=== PATIENT | female | born 1955 ===

== ENCOUNTER 2020-11-19 19:11 | Inpatient (IN) | payer MEDICARE ==
[~2020-11-19] VITALS: Ht 165.1 cm; Wt 109.1 kg
[2020-11-19] MEDS ORDERED: NEURONTIN600 MG/TAB PO (22:47)
[2020-11-19] MEDS ORDERED: VESICARE 5MG5 MG PO (22:48)
[2020-11-19] MEDS ORDERED: ASPIRIN 81M81 MG/TA2 PO (22:48)
[2020-11-19] MEDS ORDERED: SEROQUEL 2525 MG/TAB PO (22:48)
[2020-11-19] MEDS ORDERED: NATURE'S BLEND160 MG PO (22:49)
[2020-11-19] MEDS ORDERED: CARTIA XT120 MG PO (22:49)
[2020-11-19] MEDS ORDERED: PROZAC40 MG PO (22:49)
[2020-11-19] MEDS ORDERED: HCTZ12.5TAB PO (22:50)
[2020-11-19] MEDS ORDERED: CALTRATE-600 W600 MG PO (22:50)
[2020-11-19 23:09] LABS: ARTERIAL BLD GAS O2 SATURATION 96.1 % (92-100); ARTERIAL BLD GAS TCO2 CT 25.6; ARTERIAL BLOOD GAS BASE EXCESS 1.5 (-2-2); ARTERIAL BLOOD GAS HCO3 24.5 meq/L (22-26); ARTERIAL BLOOD GAS PCO2 33.4 mmHg (35-45); ARTERIAL BLOOD GAS PO2 85.4 mmHg (80-100); ARTERIAL BLOOD GAS pH 7.48 (7.35-7.45)
[2020-11-20 00:34] VITALS: BP 127/71; PULSE 56; TEMP 97.1
[2020-11-20 00:37] LABS: BASO % 0.2 % (0.0-2.0); GRAN # 4.1 (1.4-6.5); GRAN % 78.3 % (42.2-75.2); HEMOGLOBIN 11.7 g/dl (12.5-16.0); LYMPH # 0.6 (1.2-3.4); LYMPH % 11.8 % (20.0-51.0); MEAN CELL VOLUME 83 fl (80.0-100.0); MEAN CORPUSCULAR HEMOGLOBIN 27 pg (27.0-31.0); MEAN CORPUSCULAR HGB CONC 33 g/dl (33.0-37.0); MEAN PLATELET VOLUME 9.8 fl (7.4-10.4); MONO # 0.5 (0.1-0.6); MONO % 9.1 % (1.7-9.3); PLATELET COUNT 225 K/mm3 (130-400); RED BLOOD COUNT 4.35 M/mm3 (4.10-5.30); REDCELL DISTRIBUTION WIDTH-CV 14.1 % (11.5-14.5)
[2020-11-20 00:49] LABS: PROTHROMBIN TIME 11.5 SECONDS (9.7-12.8)
[2020-11-20 00:58] LABS: ALBUMIN 2.8 gm/dL (3.4-4.8); BILIRUBIN,TOTAL 0.3 mg/dL (0.2-1.2); C-REACTIVE PROTEIN 2.2 mg/dL (0.00-0.50); CALCIUM 8.6 mg/dL (8.4-10.2); CREATININE, serum 0.9 mg/dL (0.57-1.11); POTASSIUM 3.4 mmol/L (3.5-4.5)
[2020-11-20 01:04] LABS: TROPONIN-I 0.01 ng/mL (0.00-0.033)
[2020-11-20 03:34] VITALS: BP 134/70; PULSE 64; TEMP 97.6
[2020-11-20 08:04] VITALS: BP 147/73; PULSE 62; TEMP 97
[2020-11-20 08:34] LABS: GRAN # 3.8 (1.4-6.5); HEMOGLOBIN 11.9 g/dl (12.5-16.0); LYMPH # 0.6 (1.2-3.4); LYMPH % 11.9 % (20.0-51.0); MEAN CELL VOLUME 81 fl (80.0-100.0); MEAN CORPUSCULAR HEMOGLOBIN 27 pg (27.0-31.0); MEAN CORPUSCULAR HGB CONC 33 g/dl (33.0-37.0); MONO # 0.4 (0.1-0.6); MONO % 8.5 % (1.7-9.3); PLATELET COUNT 231 K/mm3 (130-400); RED BLOOD COUNT 4.41 M/mm3 (4.10-5.30)
[2020-11-20 08:41] LABS: HEMATOCRIT 35.9 % (37.0-47.0)
[2020-11-20 08:48] LABS: CALCIUM 8.6 mg/dL (8.4-10.2); CREATININE, serum 0.81 mg/dL (0.57-1.11); POTASSIUM 3.7 mmol/L (3.5-4.5)
[2020-11-20 16:35] VITALS: BP 133/72; PULSE 66; TEMP 97.7
[2020-11-20 19:42] VITALS: BP 145/77; PULSE 72; TEMP 98.1
[2020-11-20 23:44] VITALS: BP 144/73; PULSE 58; TEMP 98.3
[2020-11-21 04:14] VITALS: BP 165/89; PULSE 59; TEMP 97.6
[2020-11-21 08:20] VITALS: BP 154/81; PULSE 72; TEMP 97.8
[2020-11-21 12:12] VITALS: BP 145/77; PULSE 65; TEMP 97.7
[2020-11-21 15:58] VITALS: BP 151/73; PULSE 65; TEMP 97.6
[2020-11-21 20:00] VITALS: BP 137/81; PULSE 74; TEMP 98.3
[2020-11-22] VITALS (7 sets, daily range): BP systolic 106–150; BP diastolic 67–79; PULSE 58–80; TEMP 97.6–98.6
[2020-11-23 03:58] VITALS: BP 149/71; PULSE 70; TEMP 87
[2020-11-23 04:23] LABS: HEMOGLOBIN 11.6 g/dl (12.5-16.0); MEAN CELL VOLUME 82 fl (80.0-100.0); MEAN CORPUSCULAR HEMOGLOBIN 27 pg (27.0-31.0); MEAN CORPUSCULAR HGB CONC 32 g/dl (33.0-37.0); MEAN PLATELET VOLUME 9.7 fl (7.4-10.4); PLATELET COUNT 290 K/mm3 (130-400); RED BLOOD COUNT 4.38 M/mm3 (4.10-5.30)
[2020-11-23 04:27] LABS: HEMATOCRIT 35.8 % (37.0-47.0)
[2020-11-23 04:45] LABS: C-REACTIVE PROTEIN 10.4 mg/dL (0.00-0.50); CALCIUM 9.2 mg/dL (8.4-10.2); CREATININE, serum 0.74 mg/dL (0.57-1.11); MAGNESIUM 1.6 mg/dL (1.6-2.6); POTASSIUM 3.9 mmol/L (3.5-4.5)
[2020-11-23 05:11] LABS: BAND 2 % (0-10); EOSINOPHIL 8 % (0-4); LYMPHOCYTE 17 % (20.0-51.0); NEUTROPHILS 65 % (42.0-75.2); PLATELET ESTIMATE NORMAL (NORMAL)
[2020-11-23 08:05] VITALS: BP 131/75; PULSE 79; TEMP 99.5
[2020-11-23 11:49] VITALS: BP 87/51; PULSE 74; TEMP 99.6
[2020-11-23 16:20] VITALS: BP 109/68; PULSE 80; TEMP 97.5
[2020-11-23 20:58] VITALS: BP 103/63; PULSE 84; TEMP 97.9
[2020-11-24] VITALS (252 sets, daily range): BP systolic 120–145; BP diastolic 63–79; PULSE 61–102; TEMP 97.6–99.8; O2SAT 42–100
[2020-11-24 10:17] LABS: ARTERIAL BLD GAS O2 SATURATION 98.5 % (92-100); ARTERIAL BLD GAS TCO2 CT 24.4; ARTERIAL BLOOD GAS BASE EXCESS 1.7 (-2-2); ARTERIAL BLOOD GAS HCO3 23.5 meq/L (22-26); ARTERIAL BLOOD GAS PCO2 28.5 mmHg (35-45); ARTERIAL BLOOD GAS pH 7.53 (7.35-7.45)
[2020-11-24 10:18] LABS: ARTERIAL BLOOD GAS PO2 137.1 mmHg (80-100)
[2020-11-24 10:45] LABS: HEMATOCRIT 35.2 % (37.0-47.0); HEMOGLOBIN 11.8 g/dl (12.5-16.0); MEAN CELL VOLUME 81 fl (80.0-100.0); MEAN CORPUSCULAR HEMOGLOBIN 27 pg (27.0-31.0); MEAN CORPUSCULAR HGB CONC 34 g/dl (33.0-37.0); MEAN PLATELET VOLUME 9.7 fl (7.4-10.4); PLATELET COUNT 306 K/mm3 (130-400); RED BLOOD COUNT 4.37 M/mm3 (4.10-5.30); REDCELL DISTRIBUTION WIDTH-CV 14.5 % (11.5-14.5)
[2020-11-24 11:01] LABS: CALCIUM 8.9 mg/dL (8.4-10.2); CREATININE, serum 0.77 mg/dL (0.57-1.11); POTASSIUM 3.7 mmol/L (3.5-4.5)
[2020-11-24 11:04] LABS: BAND 6 % (0-10); LYMPHOCYTE 8 % (20.0-51.0); METAMYELOCYTE 1 % (0-0); NEUTROPHILS 79 % (42.0-75.2); PLATELET ESTIMATE NORMAL (NORMAL)
[2020-11-25] VITALS (387 sets, daily range): BP systolic 112–171; BP diastolic 64–101; PULSE 62–84; TEMP 97.3–98.7; O2SAT 50–100
[2020-11-25 04:32] LABS: ARTERIAL BLD GAS O2 SATURATION 97.4 % (92-100); ARTERIAL BLOOD GAS BASE EXCESS 0.7 (-2-2); ARTERIAL BLOOD GAS PCO2 34.2 mmHg (35-45); ARTERIAL BLOOD GAS PO2 98.7 mmHg (80-100); ARTERIAL BLOOD GAS pH 7.46 (7.35-7.45)
[2020-11-25 06:02] LABS: HEMOGLOBIN 11.9 g/dl (12.5-16.0); MEAN CELL VOLUME 82 fl (80.0-100.0); MEAN CORPUSCULAR HEMOGLOBIN 27 pg (27.0-31.0); MEAN CORPUSCULAR HGB CONC 33 g/dl (33.0-37.0); MEAN PLATELET VOLUME 9.6 fl (7.4-10.4); PLATELET COUNT 316 K/mm3 (130-400); RED BLOOD COUNT 4.44 M/mm3 (4.10-5.30); REDCELL DISTRIBUTION WIDTH-CV 14.3 % (11.5-14.5)
[2020-11-25 06:05] LABS: HEMATOCRIT 36.5 % (37.0-47.0)
[2020-11-25 06:20] LABS: CALCIUM 9.6 mg/dL (8.4-10.2); CREATININE, serum 0.7 mg/dL (0.57-1.11); POTASSIUM 4.5 mmol/L (3.5-4.5)
[2020-11-25 06:27] LABS: BAND 4 % (0-10); EOSINOPHIL 2 % (0-4); LYMPHOCYTE 15 % (20.0-51.0); MYELOCYTE 2 % (0-0); NEUTROPHILS 74 % (42.0-75.2)
[2020-11-25 06:28] LABS: PLATELET ESTIMATE NORMAL (NORMAL)
[2020-11-26] VITALS (461 sets, daily range): BP systolic 107–130; BP diastolic 55–84; PULSE 56–89; TEMP 98–98.9; O2SAT 53–100
[2020-11-26 04:02] LABS: ARTERIAL BLD GAS O2 SATURATION 92.2 % (92-100); ARTERIAL BLOOD GAS BASE EXCESS 2.7 (-2-2); ARTERIAL BLOOD GAS HCO3 25.9 meq/L (22-26); ARTERIAL BLOOD GAS PCO2 35.1 mmHg (35-45); ARTERIAL BLOOD GAS PO2 62.6 mmHg (80-100); ARTERIAL BLOOD GAS pH 7.49 (7.35-7.45)
[2020-11-26 06:20] LABS: MEAN CELL VOLUME 82 fl (80.0-100.0); MEAN CORPUSCULAR HEMOGLOBIN 27 pg (27.0-31.0); MEAN CORPUSCULAR HGB CONC 33 g/dl (33.0-37.0); PLATELET COUNT 368 K/mm3 (130-400); RED BLOOD COUNT 4.45 M/mm3 (4.10-5.30); REDCELL DISTRIBUTION WIDTH-CV 14.4 % (11.5-14.5)
[2020-11-26 06:32] LABS: HEMATOCRIT 36.5 % (37.0-47.0)
[2020-11-26 06:37] LABS: C-REACTIVE PROTEIN 7.3 mg/dL (0.00-0.50); CALCIUM 9.5 mg/dL (8.4-10.2); CREATININE, serum 0.7 mg/dL (0.57-1.11); MAGNESIUM 2.1 mg/dL (1.6-2.6); POTASSIUM 4.3 mmol/L (3.5-4.5)
[2020-11-26 07:00] LABS: EOSINOPHIL 3 % (0-4); LYMPHOCYTE 14 % (20.0-51.0); MYELOCYTE 1 % (0-0); NEUTROPHILS 79 % (42.0-75.2); PLATELET ESTIMATE NORMAL (NORMAL)
[2020-11-27] VITALS (615 sets, daily range): BP systolic 109–156; BP diastolic 70–96; PULSE 54–101; TEMP 98–98.8; O2SAT 72–100
[2020-11-27 03:48] LABS: ARTERIAL BLD GAS O2 SATURATION 91.5 % (92-100); ARTERIAL BLD GAS TCO2 CT 27.6; ARTERIAL BLOOD GAS BASE EXCESS 2.9 (-2-2); ARTERIAL BLOOD GAS HCO3 26.4 meq/L (22-26); ARTERIAL BLOOD GAS PCO2 36.8 mmHg (35-45); ARTERIAL BLOOD GAS PO2 61.6 mmHg (80-100); ARTERIAL BLOOD GAS pH 7.47 (7.35-7.45)
[2020-11-27 05:56] LABS: HEMOGLOBIN 11.9 g/dl (12.5-16.0); MEAN CELL VOLUME 81 fl (80.0-100.0); MEAN CORPUSCULAR HEMOGLOBIN 27 pg (27.0-31.0); MEAN CORPUSCULAR HGB CONC 33 g/dl (33.0-37.0); MEAN PLATELET VOLUME 9.2 fl (7.4-10.4); PLATELET COUNT 363 K/mm3 (130-400); RED BLOOD COUNT 4.46 M/mm3 (4.10-5.30); REDCELL DISTRIBUTION WIDTH-CV 14.6 % (11.5-14.5)
[2020-11-27 05:57] LABS: HEMATOCRIT 36.2 % (37.0-47.0)
[2020-11-27 06:17] LABS: C-REACTIVE PROTEIN 3.2 mg/dL (0.00-0.50); CALCIUM 9.6 mg/dL (8.4-10.2); CREATININE, serum 0.76 mg/dL (0.57-1.11); POTASSIUM 4.2 mmol/L (3.5-4.5)
[2020-11-27 06:30] LABS: BAND 4 % (0-10); EOSINOPHIL 3 % (0-4); LYMPHOCYTE 13 % (20.0-51.0); METAMYELOCYTE 1 % (0-0); NEUTROPHILS 75 % (42.0-75.2); PLATELET ESTIMATE NORMAL (NORMAL)
[2020-11-28] VITALS (714 sets, daily range): BP systolic 100–128; BP diastolic 70–88; PULSE 59–101; TEMP 98–99; O2SAT 53–100
[2020-11-28 04:12] LABS: MEAN CELL VOLUME 83 fl (80.0-100.0); MEAN CORPUSCULAR HEMOGLOBIN 27 pg (27.0-31.0); MEAN CORPUSCULAR HGB CONC 33 g/dl (33.0-37.0); MEAN PLATELET VOLUME 9.2 fl (7.4-10.4); PLATELET COUNT 335 K/mm3 (130-400); RED BLOOD COUNT 4.42 M/mm3 (4.10-5.30); REDCELL DISTRIBUTION WIDTH-CV 14.4 % (11.5-14.5)
[2020-11-28 04:26] LABS: HEMATOCRIT 36.5 % (37.0-47.0)
[2020-11-28 04:42] LABS: ALBUMIN 2.6 gm/dL (3.4-4.8); BILIRUBIN,TOTAL 0.5 mg/dL (0.2-1.2); C-REACTIVE PROTEIN 1.4 mg/dL (0.00-0.50); CREATININE, serum 0.8 mg/dL (0.57-1.11); TOTAL PROTEIN 5.9 gm/dL (6.2-8.1)
[2020-11-28 05:06] LABS: ARTERIAL BLD GAS O2 SATURATION 94.5 % (92-100); ARTERIAL BLD GAS TCO2 CT 28.6; ARTERIAL BLOOD GAS BASE EXCESS 3.5 (-2-2); ARTERIAL BLOOD GAS HCO3 27.4 meq/L (22-26); ARTERIAL BLOOD GAS PO2 74.9 mmHg (80-100); ARTERIAL BLOOD GAS pH 7.46 (7.35-7.45)
[2020-11-28 05:33] LABS: BAND 2 % (0-10); LYMPHOCYTE 19 % (20.0-51.0); NEUTROPHILS 78 % (42.0-75.2); NUCLEATED RED BLOOD CELL 1 (0-6); PLATELET ESTIMATE NORMAL (NORMAL)
[2020-11-28 05:34] LABS: HYPOCHROMIA 1+
[2020-11-29] VITALS (575 sets, daily range): BP systolic 98–188; BP diastolic 66–98; PULSE 68–91; TEMP 97.5–98.7; O2SAT 44–100
[2020-11-29 05:45] LABS: HEMATOCRIT 37.4 % (37.0-47.0); HEMOGLOBIN 12.2 g/dl (12.5-16.0); MEAN CELL VOLUME 83 fl (80.0-100.0); MEAN CORPUSCULAR HEMOGLOBIN 27 pg (27.0-31.0); MEAN CORPUSCULAR HGB CONC 33 g/dl (33.0-37.0); MEAN PLATELET VOLUME 9.2 fl (7.4-10.4); PLATELET COUNT 327 K/mm3 (130-400); REDCELL DISTRIBUTION WIDTH-CV 14.3 % (11.5-14.5)
[2020-11-29 06:02] LABS: C-REACTIVE PROTEIN 0.7 mg/dL (0.00-0.50); CALCIUM 9.9 mg/dL (8.4-10.2); CREATININE, serum 0.78 mg/dL (0.57-1.11); POTASSIUM 4.3 mmol/L (3.5-4.5)
[2020-11-29 06:17] LABS: EOSINOPHIL 1 % (0-4); LYMPHOCYTE 13 % (20.0-51.0); NEUTROPHILS 84 % (42.0-75.2); PLATELET ESTIMATE NORMAL (NORMAL)
[2020-11-30] VITALS (203 sets, daily range): BP systolic 109–121; BP diastolic 74–84; PULSE 68–93; TEMP 97.5–98.7; O2SAT 48–100
[2020-11-30 05:08] LABS: HEMATOCRIT 37.6 % (37.0-47.0); HEMOGLOBIN 12.4 g/dl (12.5-16.0); MEAN CELL VOLUME 81 fl (80.0-100.0); MEAN CORPUSCULAR HEMOGLOBIN 27 pg (27.0-31.0); MEAN CORPUSCULAR HGB CONC 33 g/dl (33.0-37.0); MEAN PLATELET VOLUME 9.5 fl (7.4-10.4); PLATELET COUNT 345 K/mm3 (130-400); RED BLOOD COUNT 4.62 M/mm3 (4.10-5.30); REDCELL DISTRIBUTION WIDTH-CV 14.3 % (11.5-14.5)
[2020-11-30 05:32] LABS: CALCIUM 9.8 mg/dL (8.4-10.2); CREATININE, serum 0.76 mg/dL (0.57-1.11); POTASSIUM 4.3 mmol/L (3.5-4.5)
[2020-12-01] VITALS (465 sets, daily range): BP systolic 111–121; BP diastolic 60–85; PULSE 66–96; TEMP 97.4–98.2; O2SAT 32–100
[2020-12-01 04:38] LABS: HEMOGLOBIN 12.2 g/dl (12.5-16.0); MEAN CELL VOLUME 82 fl (80.0-100.0); MEAN CORPUSCULAR HEMOGLOBIN 27 pg (27.0-31.0); MEAN CORPUSCULAR HGB CONC 33 g/dl (33.0-37.0); MEAN PLATELET VOLUME 9.2 fl (7.4-10.4); PLATELET COUNT 311 K/mm3 (130-400); RED BLOOD COUNT 4.49 M/mm3 (4.10-5.30); REDCELL DISTRIBUTION WIDTH-CV 14.1 % (11.5-14.5)
[2020-12-01 04:39] LABS: HEMATOCRIT 36.9 % (37.0-47.0)
[2020-12-01 05:55] LABS: EOSINOPHIL 1 % (0-4); LYMPHOCYTE 21 % (20.0-51.0); METAMYELOCYTE 1 % (0-0); NEUTROPHILS 71 % (42.0-75.2); PLATELET ESTIMATE NORMAL (NORMAL)
[2020-12-01 05:58] LABS: CALCIUM 9.5 mg/dL (8.4-10.2); CREATININE, serum 0.76 mg/dL (0.57-1.11); POTASSIUM 4.1 mmol/L (3.5-4.5)
[2020-12-01 13:53] LABS: C-REACTIVE PROTEIN 0.3 mg/dL (0.00-0.50)
[2020-12-02 04:43] VITALS: BP 133/83; PULSE 73; TEMP 97.8
[2020-12-02 09:15] VITALS: BP 118/70; PULSE 73; TEMP 98.1
[2020-12-02 09:16] LABS: HEMATOCRIT 40.4 % (37.0-47.0); MEAN CELL VOLUME 83 fl (80.0-100.0); MEAN CORPUSCULAR HEMOGLOBIN 27 pg (27.0-31.0); MEAN CORPUSCULAR HGB CONC 32 g/dl (33.0-37.0); MEAN PLATELET VOLUME 9.7 fl (7.4-10.4); PLATELET COUNT 263 K/mm3 (130-400); RED BLOOD COUNT 4.89 M/mm3 (4.10-5.30); REDCELL DISTRIBUTION WIDTH-CV 14.3 % (11.5-14.5)
[2020-12-02 09:47] LABS: CALCIUM 10.4 mg/dL (8.4-10.2); CREATININE, serum 0.77 mg/dL (0.57-1.11); POTASSIUM 4.3 mmol/L (3.5-4.5)
[2020-12-02 10:15] LABS: BAND 1 % (0-10); EOSINOPHIL 1 % (0-4); HYPOCHROMIA 1+; LYMPHOCYTE 23 % (20.0-51.0); NEUTROPHILS 63 % (42.0-75.2); PLATELET ESTIMATE NORMAL (NORMAL)
[2020-12-02 11:17] VITALS: BP 136/79; PULSE 109; TEMP 97.6
[2020-12-02 16:04] VITALS: BP 104/56; PULSE 100; TEMP 98.3
[2020-12-02 19:47] VITALS: BP 107/71; PULSE 108; TEMP 97.9
[2020-12-03 00:14] VITALS: BP 119/65; PULSE 70; TEMP 98.3
[2020-12-03 03:56] VITALS: BP 117/76; PULSE 62; TEMP 98.1
[2020-12-03 08:22] VITALS: BP 109/64; PULSE 85; TEMP 98
[2020-12-03 08:58] LABS: CALCIUM 9.8 mg/dL (8.4-10.2); CREATININE, serum 0.77 mg/dL (0.57-1.11); POTASSIUM 4.3 mmol/L (3.5-4.5)
[2020-12-03 08:59] LABS: HEMATOCRIT 37.8 % (37.0-47.0); HEMOGLOBIN 12.5 g/dl (12.5-16.0); MEAN CELL VOLUME 82 fl (80.0-100.0); MEAN CORPUSCULAR HEMOGLOBIN 27 pg (27.0-31.0); MEAN CORPUSCULAR HGB CONC 33 g/dl (33.0-37.0); MEAN PLATELET VOLUME 9.9 fl (7.4-10.4); PLATELET COUNT 251 K/mm3 (130-400); RED BLOOD COUNT 4.61 M/mm3 (4.10-5.30); REDCELL DISTRIBUTION WIDTH-CV 14.6 % (11.5-14.5)
[2020-12-03 09:19] LABS: LYMPHOCYTE 13 % (20.0-51.0); NEUTROPHILS 83 % (42.0-75.2); PLATELET ESTIMATE NORMAL (NORMAL)
[2020-12-03 12:00] VITALS: BP 115/63; PULSE 77; TEMP 98
== END 2020-12-03 14:10 | DRG 177 ==
LOC: MEDICAL 19:11 → EDSEX 22:12 → MEDICAL 22:12 → ICU 22:12 → MEDICAL 23:00 → ICU 11-24 10:15 → MEDICAL 12-01 18:23
PROVIDERS: Internal Medicine; Internal Medicine Pulmonary Disease; Nurse Practitioner Family; ADMIT Student in an Organized Health Care Education/Training Program
PROC: XW033E5 Introduction of Remdesivir Anti-infective into Peripheral Vein, Percutaneous Approach, New Technology Group 5 (ICD-10-PCS; principal; 2020-11-19)
PROC: 02HV33Z Insertion of Infusion Device into Superior Vena Cava, Percutaneous Approach (ICD-10-PCS; 2020-11-19)
PROC: 5A0935A Assistance with Respiratory Ventilation, Less than 24 Consecutive Hours, High Flow/Velocity Cannula (ICD-10-PCS; 2020-11-20)
PROC: 5A09557 Assistance with Respiratory Ventilation, Greater than 96 Consecutive Hours, Continuous Positive Airway Pressure (ICD-10-PCS; 2020-11-20)
DX: U07.1 COVID-19 (principal); J96.01 Acute respiratory failure with hypoxia; J12.82 Pneumonia due to coronavirus disease 2019; E87.1 Hypo-osmolality and hyponatremia; E87.6 Hypokalemia; I10 Essential (primary) hypertension; G47.39 Other sleep apnea; G62.9 Polyneuropathy, unspecified; G47.00 Insomnia, unspecified; F32.A Depression, unspecified; F17.210 Nicotine dependence, cigarettes, uncomplicated; F41.9 Anxiety disorder, unspecified; E16.2 Hypoglycemia, unspecified; Z96.653 Presence of artificial knee joint, bilateral; Z79.82 Long term (current) use of aspirin; Z86.718 Personal history of other venous thrombosis and embolism; Z86.711 Personal history of pulmonary embolism; Z73.0 Burn-out
CPT/HCPCS: 99223-AI; 99231-AI; 99232-AI; 99233-AI; 99239; C1751; J0696; J1100; J1650; J2997; J3475; J3480; J7030; J8540; Q0249; Q9967